=== PATIENT | female | born 2005 | race African-American/Black ===

== ENCOUNTER 2024-11-02 20:32 | Emergency (ER) | payer OTHER, MEDICAID | END 2024-11-02 21:45 | disposition home or self-care (01) | LOC: JP.ED 20:32 | DX: S13.9XXA Sprain of joints and ligaments of unspecified parts of neck, initial encounter (principal); E78.00 Pure hypercholesterolemia, unspecified; V89.2XXA Person injured in unspecified motor-vehicle accident, traffic, initial encounter | CPT/HCPCS: 99283 ==